=== PATIENT | male | born 1980 | race Caucasian/White ===

== ENCOUNTER 2022-04-07 13:54 | Emergency (ER) | payer SELFPAY ==
--- OUTSIDE RECORDS SUMMARY | 2022-04-07 13:57 | XMS REPORT | Continuity of Care Document ---
:1980 Author Organization [facility] t Address [address] [place] [address] Care Team Providers Name Role Phone PCP, NO Primary Care Physician Unavailable KAYODE JONES Attending Clinician Unavailable Problems Condition Condition Condition Status Onset Resolution Last Treating Co mments Source Name Details Category Date Date Treatment Clinician Date Rib injury Problem Active [facility] S Health Exposure Problem Inactiv [facility] U to e S sexually Health transmitte d disease (STD) Encounter Problem Inactiv [facility] for e S medical Health screening examinatio n Problem Condition [facility] U S Health Allergies, Adverse Reactions, Alerts Allergy Allergy Status Severity Reaction(s) Onset Inactive Treating Comm ents Source Name Type Date Date Clinician NO KNOWN Propensi Active Unknown [facility] ALLERGY ty to 6-27 S adverse 00:00: Health reaction 00 s Social History Social Habit Start Date Stop Date Quantity Comments Source History of tobacco [facility] Health use Sex Assigned At [birth year] Male [facility] 00:00:00 00:00:00 Smoking Status Start Date Stop Date Source Current some day smoker 2021-08-29 15:04:00 [facility] [employer] Medications Ordered Filled Start Stop Current Ordering Indication Dosage Frequency Signature Comments Components Source Medication Medication Date Date Medication? Clinician (SIG) Name Name Acetaminoph No 1 Every 6 [facility] ISTU en/Codeine 5-03 Hours as S Phosphate 15:04: needed for He alth (Tylenol 00 Pain #3) 1 Each TAB Ondansetron No 4mg Every 12 [facility] RISTU Hcl 3-31 Hours as S 14:37: needed Health 00 Ondansetron No 4mg Every 12 [facility] Hcl (Zofran 3-31 Hours as S Odt) 4 Mg 14:37: needed Health TAB.RAPDIS 00 Tamsulosin No .4mg Daily RONAL U Hcl 3-31 S 14:32: Health 00 Tamsulosin No .4mg Daily RONAL U Hcl 3-31 S (Flomax) 14:32: Health 0.4 Mg CAP 00 Acetaminoph No 1 Every 4 [facility] ISTU en/Hydrocod 3-31 Hours as S one Bitart 14:31: needed Healt h ([place] 00 7.5/325) 1 Tab TABLET Ciprofloxac No 500mg Twice A [facility] RISTU in (Cipro) 07-27 Day S 500 Mg TAB 14:31: Health 00 Acetaminoph No 1 Every 4 [facility] en/Hydrocod 3-31 Hours as S one [place]art 14:31: needed Healt h 00 Ciprofloxac No 500mg Twice A [facility] RISTU in 31 Day S 14:31: Health 00 Acetaminoph No 1 Q6h Prn [facility] ISTU en/Hydrocod 6-27 S one [place]art 04:10: Health (Vicodin 00 5-500) 1 Tab TAB Acetaminoph No 1 Q6h Prn [facility] ISTU en/Hydrocod 6-27 S one Bitart 04:10: Health 00 Miscellaneo No 0 Xx For [facility] Order Sets S Information Health Miscellaneo No 0 Xx For [facility] Order Sets S Information Health (No Home Meds) MISC Vital Signs Vital Name Observation Time Observation Value Comments Source BP Diastolic 2021-08-29 15:10:00 79 mm[Hg] [employer] BP Systolic 2021-08-29 15:10:00 115 mm[Hg] [facility] Rate 2021-08-29 15:10:00 99 /min [facility] [employer] Respiratory rate 2021-08-29 15:10:00 16 /min [facility] Body Temperature 2021-08-29 15:10:00 98.2 [degF] [facility] [employer] BP Diastolic 2021-08-29 13:30:00 75 mm[Hg] [facility] BP Systolic 2021-08-29 13:30:00 106 mm[Hg] [facility] Heart Rate 2021-08-29 13:30:00 105 /min [facility] Respiratory rate 2021-08-29 13:30:00 18 /min [facility] Body Temperature 2021-08-29 13:30:00 98.1 [degF] [facility] BP Diastolic 2021-08-29 13:23:00 75 mm[Hg] [facility] BP Systolic 2021-08-29 13:23:00 106 mm[Hg] [facility] Heart Rate 2021-08-29 13:23:00 105 /min [facility] Respiratory rate 2021-08-29 13:23:00 18 /min [facility] Body Temperature 2021-08-29 13:23:00 98.1 [degF] [facility] Body Temperature 2019-01-29 15:24:00 98.0 [degF] [facility] Heart Rate 2019-01-29 15:24:00 75 /min [facility] Respiratory rate 2019-01-29 15:24:00 19 /min [facility] BP Systolic 2019-01-29 15:24:00 117 mm[Hg] [facility] BP Diastolic 2019-01-29 15:24:00 76 mm[Hg] [facility] Weight 2019-01-29 14:57:00 160 [lb_av] [facility] BMI (Body Mass Index) 2019-01-29 14:57:00 22.3 kg/m2 [facility] Heart Rate 2019-01-29 14:56:00 75 /min [facility] Respiratory rate 2019-01-29 14:56:00 19 /min [facility] BP Systolic 2019-01-29 14:56:00 117 mm[Hg] [facility] BP Diastolic 2019-01-29 14:56:00 76 mm[Hg] [facility] Procedures Procedure Date / Time Performed Performing Clinician [facility] e X-ray of chest, two views 2021-08-29 00:00:00 [facility] Encounters Start End Encounter Admission Attending Care Care Encounter Source Date/Time Date/Time Type Type Clinicians Facility Department ID 2021-08-29 2021-08-29 Registered WILL CALLOWAY [id number] [facility] 13:39:00 15:16:00 Emergency KAYODE [address] Room Health 2019-01-29 2019-01-29 Departed JEANETTE SOLIS [id number] [facility] 14:43:00 15:19:[address] [facility] Results Test Description Test Time Test Comments Results Result Sourc e Comments CHEST XR 2 VIEWS [place] [id number] 18:20:00 [place], [place] [id number] IMAGING REPORTPatient Name: Tariq CALDERON of Service: [id number]: 38 Sex: M Order #: [id number] Room: QERDOB: 1980 X-Ray Number: [id number] Record Number: [id number] Hospital Number: [id number] Physician: ROBERTA LOPEZOrderso Physician: TITUS ESTRADA XR 2 VIEWS 02/03/2019 5:47 PMHistory: sob, r/o pneumothoraxComparisons: 12/12/2018FINDINGS:Heart size is normal.There is no focal lung consolidation.There is no definite pleural effusion or pneumothorax identified.IMPRESSION:No acute cardiopulmonary process.No pneumothorax.Electronicall y Signed By: Elvin Cunningham M.D., 02/03/2019 6:17 PMLegally authenticated by JOAN THORPE 2019-02-03 18:17:53 CHEST 1 VIEW 2018-11-27 [place] [address] 13:33:00 [place], [place] [id number] IMAGING REPORTPatient Name: Tariq CALDERON of Service: [id number]: 38 Sex: M Order #: [id number] Room: [facility]/ A 3SDOB: 1980 X-Ray Number: [id number] Record Number: [id number] Hospital Number: [id number] Physician: LOW BUENOOrderso Physician: Negro GARCIA.12/12/2018 1:30 PMHistory: Post chest tube removalTechnique: Single AP chest projection.Findings: Single chest projection demonstrates normal heart size and clearlungs. The osseous structures appear intact.Impression:No acute-appearing cardiopulmonary abnormalities.Electronical ly Signed By: Porter Camarillo M.D., 12/12/2018 1:30 PMLegally authenticated by JHONNY Robledo 2018-12-12 13:30:53 CHEST 1 VIEW 2018-11-27 [place] [address] 08:31:00 [place], [place] [id number] IMAGING REPORTPatient Name: Tariq CALDERON of Service: [id number]: 38 Sex: M Order #: [id number] Room: [facility]/ A 3SDOB: 1980 X-Ray Number: [id number] Record Number: [id number] Hospital Number: [id number] Physician: Tyesha BUENO Physician: Negro GARCIA.12/12/2018 8:19 AMHistory: Short of breath.Technique: Single AP chest projection.Comparison: December 11, 2018.Findings: Single chest projection demonstrates normal heart size and clearlungs. The osseous structures appear intact. There is a left-sided chesttube present with its tip in the left midlung region. There is nosignificant size pneumothorax present.Impression:No acute-appearing cardiopulmonary abnormalities.Electronical ly Signed By: Porter Camarillo M.D., 12/12/2018 8:29 AMLegally authenticated by JHONNY Robledo 2018-12-12 08:29:05 CHEST XR 2 VIEWS 2018-11-27 [place] [address] 08:55:00 [place], [place] [id number] IMAGING REPORTPatient Name: Tariq CALDERON of Service: [id number]: 38 Sex: M Order #: [id number] Room: [facility]/ A 3SDOB: 1980 X-Ray Number: [id number] Record Number: [id number] Hospital Number: [id number] Physician: Tyesha BUENO Physician: JHONATAN BUENO.12/11/2018 7:44 AMHistory: Short of breath.Technique: PA and lateral chest projections.Findings: PA and lateral views of the chest demonstrate normal heart sizeand clear lungs. No infiltrates or abnormalities are depicted. The osseousstructures appear intact. Left-sided chest tube remains in place.Impression:No acute-appearing cardiopulmonary abnormalities.Electronical ly Signed By: Porter Camarillo M.D., 12/11/2018 8:53 AMLegally authenticated by JHONNY Robledo 2018-12-11 08:53:11 CHEST 1 VIEW 2018-11-27 [place] [address] 18:00:00 [place], [place] [id number] IMAGING REPORTPatient Name: Tariq CLADERON of Service: [id number]: 38 Sex: M Order #: [id number] Room: [facility]/ A 3SDOB: 1980 X-Ray Number: [id number] Record Number: [id number] Hospital Number: [id number] Physician: Tyesha BUENO Physician: CHACORTA HARRELLARHISTORY: Pneumothorax. Left-sided chest pain. Shortness of breath. Chesttube management.COMPARISON: 12/09/2018TECHNIQUE: Portable chest 1 viewFINDINGS:There is now a pigtail chest tube on the left. There is resolution of theleft pneumothorax. The lungs are clear. The heart size is normal.IMPRESSION:1. Well-positioned left chest tube with interval resolution of the leftpneumothorax.Suzii dona Signed By: Carley Blank M.D., 12/10/2018 5:57 PMLegally authenticated by ROSAMARIA HOWE 2018-12-10 17:57:49 SPECIAL 2018-11-27 [place] [address] 18:28:00 [place], [place] [id number] IMAGING REPORTPatient Name: Tariq CALDERON of Service: [id number]: 38 Sex: M Order #: [id number] Room: [facility]/ A 3SDOB: 1980 X-Ray Number: [id number] Record Number: [id number] Hospital Number: [id number] Physician: Tyesha BUENO Physician: LOW BUENOFluoroscopic guided chest tube placement 12/09/2018 5:56 PMHISTORY: Pneumothorax. 38-year-old male with a spontaneous leftpneumothorax with chest pain and shortness of breath.TECHNIQUE/FINDINGS: After obtaining written, informed consent the patient was placed in thesupine position on the angiography table. The left mid axillary line wasprepped and draped in usual sterile fashion. Preliminary fluoroscopicimaging of the chest demonstrates an appropriate access site. This was thenanesthetized with 1% lidocaine and a small dermatotomy was made.Under real-time fluoroscopic guidance an 8 Martiniquais pigtail chest tube wasadvanced into the left pleural space via a trocar technique. The innerstylette was removed. The pigtail was formed and locked. The chest tube wasthen connected to a waterseal device. The catheter was sutured in place andsecured to the skin with a sterile bandage. The patient tolerated theprocedure well and without, location.Sedation: Local 1% lidocaineImmediate consultations: NoneFluoroscopy time: 0.5 minutes; DAP: 12 GycmEstimated blood loss: NoneIMPRESSION:Successful fluoroscopic guided placement of a left 8 Martiniquais pigtail chesttube.Electronically Signed By: Carley Blank M.D., 12/09/2018 6:25 PMLegally authenticated by ROSAMARIA HOWE 2018-12-09 18:25:34 CHEST 1 VIEW 2018-11-27 [place] [address] 10:11:00 [place], [place] [id number] IMAGING REPORTPatient Name: Tariq CALDERON of Service: [id number]: 38 Sex: M Order #: [id number] Room: [facility]/ A 3SDOB: 1980 X-Ray Number: [id number] Record Number: [id number] Hospital Number: [id number] Physician: Tyesha BUENO Physician: CARLEY BLANKExam: Chest APHistory: Evaluate for pneumothoraxComparison: Chest x-ray 12/09/2018.Findings: There is a left apical pneumothorax which measures approximately1.9 cm from the apex. This is similar to the prior exam. There is noevidence of mediastinal shift. The right lung is clear. The cardiac andsuperior mediastinal silhouettes are within normal limits.Impression:Stable left apical pneumothorax as above.Electronically Signed By: Deven Yoo M.D., 12/09/2018 9:55 AMLegally authenticated by SABA GUZMAN JR 2018-12-09 09:55:44 CHEST 1 VIEW 2018-11-27 [place] [address] 08:41:00 [place], [place] [id number] IMAGING REPORTPatient Name: Tariq CALDERON of Service: [id number]: 38 Sex: M Order #: [id number] Room: QERDOB: 1980 X-Ray Number: [id number] Record Number: [id number] Hospital Number: [id number] Physician: Shani FONSECA Physician: FRANCISCO FONSECAExam: Chest APHistory: Left lower chest painComparison: No comparison availableFindings: There is a small left-sided pneumothorax which measuresapproximately 1.9 cm from the apex. No evidence of mediastinal shift. Theright lung is clear. The cardiac and superior mediastinal silhouettes arewithin normal limits.Impression:There is a small left-sided pneumothorax.Electronicall y Signed By: Deven Yoo M.D., 12/09/2018 8:39 AMLegally authenticated by SABA GUZMAN JR 2018-12-09 08:39:10 CT THORAX W/O 2018-11-27 [place] [address] 07:25:00 [place], [place] [id number] IMAGING REPORTPatient Name: Tariq CALDERON of Service: [id number]: 38 Sex: M Order #: [id number] [facility] 1980 [facility] Number: [id number] Record Number: [id number] Hospital Number: [id number] Physician: Shani FONSECA Physician: MARQUITA VAN THORAX W/O CONT 12/09/2018 3:22 AMHISTORY: Chest Pain without Trauma/Injury . Chest pain. Shortness ofbreath. Left-sided chest pain.COMPARISON: NoneTECHNIQUE: Unenhanced CT imaging of the chest. This CT exam was performedusing one or more of the following dose reduction techniques: Automatedexposure control, adjustment of the mA and/or KV according to patient size,or use of iterative reconstruction technique.FINDINGS:There is a moderate size left pneumothorax. There are blebs within the leftlung apex. There is mild compressive atelectasis of the left lower lobe andlingula. There is no pleural effusion. The right lung is clear. There aresmall right apical blebs.The heart size is normal. There is no pericardial effusion.Limited imaging through the upper abdomen reveals no acute abnormality. Thebony thorax is intact without acute abnormality.IMPRESSION:1. Moderate size left pneumothorax with biapical blebs, left larger thanright.Electronically Signed By: Carley Blank M.D., 12/09/2018 7:22 AMLegally authenticated by ROSAMARIA HOWE 2018-12-09 07:22:46 TROPONIN I - ADV 2018-12-09 03:39:00 Test Item Value Reference Range Interpretation Comme nts TROP-I (test code = TROP-I) <0.012 ng/ml 0.012-0.033 INTERPRETIVE DATA A TROPONIN OF L ESS THAN 0.034 NG/ML IS CONSID ERED NEGATIVE A TROPONIN OF 0.0 34 - 0.119 NG/ML IS CONSIDERED G RAYZONE A TROPONIN =/> 0. 120 NG/ML IS CONSIDERED POSI TIVE [id number] 03:39:00 Test Item Value Reference Range Interpretation Comments %CKMB (test code = %MB) 0.6 % CKMB (test code = CKMB) 0.3 NG/ML 0.22-2.4 CK (test code = CK) 47 U/L 55-170 L CKINTERP (test code = NEGATIVE Negative CKINTERP) [id number] 03:31:00 Test Item Value Reference Range Interpretation Comments SODIUM (test code = 139 MMOL/L 137-145 NA) K+ (test code = 4.4 MMOL/L 3.5-5.1 PLEASE NOTE NEW KSERUM) REFERENCE RANGE (S) IN EFFECT EFFECTIVE 010 - NEW ANALYZER (V ITROS 5600) CHLORIDE (test code 106 MMOL/L 98-107 = CL) CO2 (test code = 27 MMOL/L 22-30 CO2) BUN (test code = 10 MG/DL 9-20 BUN) CREA (test code = 0.8 MG/DL 0.8-1.5 CREA) GLUCOSE (test code 102 MG/DL 70-99 H Fasting glucose = GLUCOSE) normal <100 MG/ DL- [employer] recommendation* * CALCIUM (test code 9.5 MG/DL 8.4-10.2 = CABLOOD) TOTPROT (test code 7.1 G/DL 6.3-8.2 = TOTPROT) ALBUMIN (test code 4.2 G/DL 3.5-5.0 = ALBSERUM) BILITOT (test code 0.4 MG/DL 0.2-1.3 = BILITOT) AST (test code = 21 U/L 15-46 AST) PHOSALK (test code 66 U/L 38-126 = PHOSALK) ALT (test code = 25 U/L 13-69 ALT) GFR (test code = 116 A GFR of >9 0 GFR) mL/min/1.73m2 mL/min/1.73m2 is considered norm al. [id number] 03:24:00 Test Item Value Reference Range Interpretation Comments WBC (test code = 11.4 K/UL 3.5-10.9 H WBC) RBC (test code = 4.88 M/UL 4.3-5.7 RBC) HGB (test code = 14.1 G/DL 13.0-17.9 HGB) HCT (test code = 43.6 % 38-52 HCT) MCV (test code = 89.3 FL 80-98 MCV) MCH (test code = 28.9 PG 28-32 MCH) MCHC (test code = 32.3 G/DL 32.5-36.5 L MCHC) RDW (test code = 14.4 % 11.5-14.5 RDW) PLT (test code = 312 K/UL 150-450 PLT) MPV (test code = 10.2 FL 7.4-10.4 MPV) MANDIFF (test code = NO MANDIFF) SCAN (test code = NO SCAN) NEUT% (test code = 66.7 % 40-75 NEUT%) LYMPH% (test code = 24.8 % 24-44 LYMPH%) MONO% (test code = 6.9 % 0-13 MONO%) EOS% (test code = 0.7 % 0-4 EOS%) BASO % (test code = 0.5 % 0-2 BASO%) IG (test code = IG) 0 % 0-1 IG% (test code = 0.4 % 0-1 IG% = Metam yelocytes, IG%) Myelocytes, and Promyelocytes. (Immature neutr ophils not including " bands".) > 3% IG indic ates risk of sepsis NRBC% (test code = 0 /100 WBC NRBC%) ABS NEUT (test code 7.6 K/UL 1.2-7.2 H = NEUT)
--- NOTE | 2022-04-07 15:55 | EDPHYS ---
Physician Documentation [facility] Name: Kendall Coleman Age: 41 yrs Sex: Male : 1980 Arrival Date: 04/07/2022 Time: 13:55 Bed DIS3 Private MD: ED Physician Aldo Champagne HPI: 04/07 15:45 This 41 yrs old Male presents to ER via Ambulatory with complaints of spider bite. cp 15:45 The patient presents with possible spider bite. The complaints affect the medial aspect cp left foot. Onset: The symptoms/episode began/occurred 2 day(s) ago. Associated signs and symptoms: The patient has no apparent associated signs or symptoms. Severity of symptoms: in the emergency department the symptoms have improved, mildly. Historical: - Allergies: 15:10 No Known Allergies; iw - Home Meds: 15:10 None [Active]; iw - PMHx: 15:10 None; iw - PSHx: 15:10 None; iw ROS: 15:47 Skin: Positive for of the medial aspect left foot, possible spider bite. cp 15:47 Constitutional: Negative for body aches, chills, fever. cp 15:47 All other systems are negative. Exam: 15:50 Head/Face: Normocephalic, atraumatic. cp 15:50 Constitutional: The patient appears in no acute distress, alert, awake, comfortable, non-toxic, well developed, well nourished. 15:50 Cardiovascular: Rate: normal, Pulses: Pulses are 2+ in left dorsalis pedis artery. cp 15:50 Respiratory: the patient does not display signs of respiratory distress, Respirations: normal, no use of accessory muscles, no retractions, labored breathing, is not present. 15:50 Skin: small area of erythema, marked tenderness to palpation and minimal swelling noted medial aspect left foot. Vital Signs: 15:09 BP 117 / 81; Pulse 64; Resp 16; Temp 98.7; Pulse Ox 98% on R/A; iw MDM: 15:14 Patient medically screened. cp 15:45 Differential diagnosis: cellulitis, abscess. cp 15:54 Data reviewed: vital signs, nurses notes. cp 15:54 Counseling: I had a detailed discussion with the patient and/or guardian regarding: the cp historical points, exam findings, and any diagnostic results supporting the discharge/admit diagnosis, to return to the emergency department if symptoms worsen or persist or if there are any questions or concerns that arise at home. Administered Medications: No medications were administered Disposition: 17:28 Co-signature as Attending Physician, Aldo Champagne MD I agree with the assessment and rt plan of care. Disposition Summary: 04/07/22 15:54 Discharge Ordered Location: Home cp Problem: new cp Symptoms: are unchanged cp Condition: Stable cp Diagnosis - Local infection of the skin and subcutaneous tissue, unspecified - left foot cp Followup: cp - With: Private Physician - When: 2 - 3 days - Reason: Worsening of condition Discharge Instructions: - Discharge Summary Sheet cp - Cellulitis, Adult cp Forms: - Medication Reconciliation Form cp - Work release form iw - Thank You Letter cp - Antibiotic Education cp - Prescription Opioid Use cp Prescriptions: - Bactrim DS 800-160 mg Oral Tablet - take 1 tablet by ORAL route every 12 hours for 7 days; 14 tablet; Refills: 0, cp Product Selection Permitted - Naprosyn 500 mg Oral Tablet - take 1 tablet by ORAL route 2 times per day take with food; 20 tablet; Refills: cp 0, Product Selection Permitted Signatures: Pam Powers, RN RN iw Ajay Zaman PA PA cp Aldo Champagne MD MD rt Corrections: (The following items were deleted from the chart) 04/08 14:08 04/07 15:15 Differential diagnosis: cellulitis, abscess cp cp
--- NOTE | 2022-04-07 15:55 | ER ---
Nurse's Notes [facility] Name: Kendall Coleman Age: 41 yrs Sex: Male : 1980 Arrival Date: 04/07/2022 Time: 13:55 Bed DIS3 Private MD: Diagnosis: Local infection of the skin and subcutaneous tissue, unspecified-left foot Presentation: 04/07 15:09 Chief complaint: Patient states: bite on inside of left foot, X 2 days, redness iw starting to spread. Coronavirus screen: At this time, the client does not indicate any symptoms associated with coronavirus-19. Ebola Screen: Patient negative for fever greater than or equal to 101.5 degrees Fahrenheit, and additional compatible Ebola Virus Disease symptoms Patient denies exposure to infectious person. Patient denies travel to an Ebola-affected area in the 21 days before illness onset. No symptoms or risks identified at this time. Initial Sepsis Screen: Does the patient meet any 2 criteria? No. Patient's initial sepsis screen is negative. Does the patient have a suspected source of infection? No. Patient's initial sepsis screen is negative. Risk Assessment: Do you want to hurt yourself or someone else? Patient reports no desire to harm self or others. Onset of symptoms was April 05, 2022. 15:09 Method Of Arrival: Ambulatory iw 15:09 Acuity: ISAAC 4 iw Historical: - Allergies: 15:10 No Known Allergies; iw - Home Meds: 15:10 None [Active]; iw - PMHx: 15:10 None; iw - PSHx: 15:10 None; iw Vital Signs: 15:09 BP 117 / 81; Pulse 64; Resp 16; Temp 98.7; Pulse Ox 98% on R/A; iw ED Course: 13:55 Patient arrived in ED. am2 14:10 Ajay Zaman PA is PHCP. cp 14:10 Aldo Champagne MD is Attending Physician. cp 15:10 Triage completed. iw 16:14 Pam Powers RN is Primary Nurse. iw Administered Medications: No medications were administered Outcome: 15:54 Discharge ordered by . cp 16:16 Patient left the ED. iw Signatures: Pam Powers RN RN iw Ajay Zaman PA PA Yamilet Colbert am2
[2022-04-07 21:45] VITALS: BP 117/81; TEMP 98.7; O2SAT 98
== END 2022-04-07 16:16 | disposition home or self-care (01) ==
LOC: ER 13:54
DX: L08.9 Local infection of the skin and subcutaneous tissue, unspecified (principal)
CPT/HCPCS: 99281